=== PATIENT | male | born 1990 | race American Indian/Alaskan Native ===

== ENCOUNTER 2018-12-18 21:09 | Emergency (ER) | payer SELFPAY ==
--- NOTE | 2018-12-18 21:25 | Emergency Department Report ---
Blank Doc - Documentation Documentation: 28 y o male presents complaining of feeling weird stating some one gave him a cup of what he thought was liquor but after taking a sip he started having a out of feeling experience denies any pain UDS
[2018-12-18 22:14] LABS: Benzodiazepines Screen,Urine PRESUMPTIVE NEGATIVE; Cocaine Screen,Urine PRESUMPTIVE NEGATIVE; Methadone Screen,Urine PRESUMPTIVE NEGATIVE; Opiate Screen,Urine PRESUMPTIVE NEGATIVE
[2018-12-18 22:28] LABS: Amphetamine Screen,Urine PRESUMPTIVE POSITIVE; Cannabinoid Screen,Urine PRESUMPTIVE POSITIVE
--- NOTE | 2018-12-19 00:26 | Emergency Department Report ---
HPI - General Chief Complaint: Medical Clearance Time Seen by Provider: 12/18/18 21:20 - HPI HPI: 28-year-old -[place] male presents to the emergency department, brought in by his girlfriend, after he drank a very small amount of what he thought was liquor and then started having hallucinations about 45 minutes later. The patient says he was given a taste of something by his neighbor. He started having "an out of body experience" and these hallucinations. At the current time, the patient denies any of these symptoms and says that he is back at his normal baseline status. He denies any past medical or psychiatric history. He did not take anything for his symptoms prior to arrival. No recent travel or sick contacts at home. ED Past Medical Hx - Past Medical History Previous Medical History?: Yes Hx GERD: Yes Hx Asthma: Yes - Surgical History Past Surgical History?: Yes Additional Surgical History: tonsilectomy 04/10/13 - Social History Smoking Status: Current Every Day Smoker Substance Use Type: Marijuana - Medications Home Medications: Home Medications Medication Instructions Recorded Confirmed Last Taken Type No Known Home Medications [No 04/06/13 04/06/13 Unknown History Reported Home Medications] ED Review of Systems ROS: Stated complaint: POSSIBLE DRUG INGESTION Other details as noted in HPI Constitutional: denies: chills, fever Eyes: denies: eye pain, vision change ENT: denies: ear pain, throat pain Respiratory: denies: cough, shortness of breath Cardiovascular: denies: chest pain, palpitations Gastrointestinal: denies: abdominal pain, vomiting Genitourinary: denies: urgency, dysuria Musculoskeletal: denies: back pain, arthralgia Skin: denies: rash, lesions Neurological: denies: headache, weakness Psychiatric: visual hallucinations Physical Exam - Physical Exam Vital Signs: Vital Signs 12/18/18 12/18/18 21:16 21:18 Temperature 99.6 F Pulse Rate 130 H Respiratory 22 Rate Blood Pressure 158/116 O2 Sat by Pulse 98 Oximetry Physical Exam: GENERAL: The patient is well-developed well-nourished. HENT: Normocephalic. Atraumatic. Patient has moist mucous membranes. EYES: Extraocular motions are intact. Pupils equal reactive to light bilaterally. NECK: Supple. Trachea is midline. CHEST/LUNGS: Clear to auscultation. There is no respiratory distress noted. HEART/CARDIOVASCULAR: Regular. There is no tachycardia. There is no murmur. ABDOMEN: Abdomen is soft, nontender. Patient has normal bowel sounds. There is no abdominal distention. SKIN: Skin is warm and dry. NEURO: The patient is awake, alert, and oriented. The patient is cooperative. The patient has no focal neurologic deficits. The patient has normal speech. MUSCULOSKELETAL: There is no tenderness or deformity. There is no limitation range of motion. There is no evidence of acute injury. ED Course Vital Signs 12/18/18 12/18/18 21:16 21:18 Temperature 99.6 F Pulse Rate 130 H Respiratory 22 Rate Blood Pressure 158/116 O2 Sat by Pulse 98 Oximetry ED Medical Decision Making - Medical Decision Making This patient originally presented after drinking a very small amount of what he thought was hard liquor. However 45 minutes later the patient started having some hallucinations. His urine shows screen is positive for amphetamines and marijuana. At the time of my examination, the patient is awake and alert and says that he is back at his baseline mental status. He is refusing any blood work or any further evaluation. He would not even wait for any discharge paperwork before eloping from the emergency department. The patient is AAO 3. Prior to him leaving the emergency department, I witnessed him ambulatory and he appears stable. Since he is awake, alert, oriented, he appears to have normal decision-making capacity and therefore is able to refuse any further blood work or evaluation. Critical Care Time: No Critical care attestation.: If time is entered above; I have spent that time in minutes in the direct care of this critically ill patient, excluding procedure time. ED Disposition Clinical Impression: Ingested substance, unknown drug Qualifiers: Encounter type: initial encounter Injury intent: accidental or unintentional Qualified Code(s): T50.901A - Poisoning by unspecified drugs, medicaments and biological substances, accidental (unintentional), initial encounter Disposition: -01 TO HOME OR SELFCARE Is pt being admited?: No Condition: Stable Additional Instructions: Please follow up with a primary care physician. It is recommended that you do not consume any food or drink that is given to you by someone else. Return to the emergency Department with any return or worsening of your symptoms or any acute distress. Referrals: VANESSA KOO MD [Staff Physician] - 2-3 Days [facility] [Outside] - 2-3 Days Time of Disposition: 00:26
[2018-12-19 00:30] VITALS: BP 135/64
== END 2018-12-19 00:30 | disposition home or self-care (01) ==
LOC: ED 21:09
DX: T50.901A Poisoning by unspecified drugs, medicaments and biological substances, accidental (unintentional), initial encounter (principal); K21.9 Gastro-esophageal reflux disease without esophagitis; J45.909 Unspecified asthma, uncomplicated; F17.200 Nicotine dependence, unspecified, uncomplicated; F12.10 Cannabis abuse, uncomplicated; Z90.89 Acquired absence of other organs; Y92.89 Other specified places as the place of occurrence of the external cause
CPT/HCPCS: 80307; 99283